=== PATIENT | male | born 2000 | race Caucasian/White ===

== ENCOUNTER 2023-06-24 13:29 | Emergency (ER) | payer BC ==
[~2023-06-24] VITALS: Ht 175 cm; Wt 75.0 kg
[2023-06-24 13:55] LABS: BASOPHILS % (AUTO) 1 % (0-10); EOSINOPHILS % (AUTO) 0 % (0-10); HEMATOCRIT 45 % (40-54); HEMOGLOBIN 16.3 g/dL (13.3-17.7); LYMPHOCYTES % (AUTO) 30 % (12-44); MEAN CORPUSCULAR HEMOGLOBIN 31 pg (25-34); MEAN CORPUSCULAR HGB CONC 36 g/dL (32-36); MEAN CORPUSCULAR VOLUME 86 fL (80-99); MEAN PLATELET VOLUME 9.8 fL (9.0-12.2); MONOCYTES # (AUTO) 0.3 10^3/uL (0.0-1.0); MONOCYTES % (AUTO) 4 % (0-12); NEUTROPHILS # (AUTO) 4.4 10^3/uL (1.8-7.8); NEUTROPHILS % (AUTO) 66 % (42-75); PLATELET COUNT 256 10^3/uL (130-400); WHITE BLOOD COUNT 6.8 10^3/uL (4.3-11.0)
[2023-06-24 14:06] LABS: CHLORIDE 104 MMOL/L (98-107); POTASSIUM 3.5 MMOL/L (3.6-5.0); SODIUM 141 MMOL/L (135-145)
[2023-06-24 14:08] LABS: CALCIUM 10.1 MG/DL (8.5-10.1)
[2023-06-24 14:09] LABS: GLUCOSE 107 MG/DL (70-105)
[2023-06-24 14:10] LABS: CARBON DIOXIDE 23 MMOL/L (21-32); TOTAL PROTEIN 8.2 GM/DL (6.4-8.2)
[2023-06-24 14:13] LABS: ALKALINE PHOSPHATASE 57 U/L (40-136); CREATININE SERUM 0.93 MG/DL (0.60-1.30); GFR ESTIMATED 121
[2023-06-24 14:15] LABS: BUN/CREATININE RATIO 13
[2023-06-24 14:16] LABS: ALANINE AMINOTRANSFERASE 54 U/L (0-55); SALICYLATE < 5.0 MG/DL (5.0-20.0)
--- NOTE | 2023-06-24 14:16 | Diagnostic Imaging Report ---
PROCEDURE: CT head and CT cervical spine without contrast. TECHNIQUE: Multiple contiguous axial images were obtained through the brain and cervical spine without the use of intravenous contrast. Sagittal and coronal reformations through the cervical spine were then performed. Auto Exposure Controls were utilized during the CT exam to meet ALARA standards for radiation dose reduction. INDICATION: Headache and neck pain after fall altered mental status. Intoxication. COMPARISON: None. FINDINGS: No acute intracranial hemorrhage. The roper-white matter differentiation is preserved. No intracranial mass or fluid collection. No midline shift or mass effect. Paranasal sinuses and mastoids are clear. The globes and orbits are normal. Normal alignment of the cervical spine. No acute fracture or dislocation. Normal disc spaces. No high-grade spinal canal or neuroforaminal stenosis. The soft tissues are normal. The visualized lung apices are normal. IMPRESSION: No acute intracranial hemorrhage. No large vascular territory sexton-white loss. No intracranial mass, midline shift, or hydrocephalus. No acute fracture or dislocation of the cervical spine. Dictated by: Dictated on workstation # [id number]
[2023-06-24 14:22] LABS: ACETAMINOPHEN < 10 UG/ML (10-30)
--- NOTE | 2023-06-24 14:23 | ED General ---
General Chief Complaint: Trauma EMS/Air Arrival Activat Stated Complaint: FALL | FEVER | DRUNK Nursing Triage Note: PT TO RM 5 BY [facility] FROM [facility] WITH C/O FALLING DOWN APPROX 10. TRAUMA 2 ACTIVATED. PT STATES HE DRANK A 12 PACK OF BEER STARTING AT 0645 THIS MORNING. PT DENIES PAIN AT ARRIVAL Source of Information: Patient, EMS Exam Limitations: Intoxication History of Present Illness Date Seen by Provider: Jun 24, 2023 Time Seen by Provider: 13:41 Initial Comments This 22-year-old young man presents to the emergency room via EMS after reportedly falling down approximately 10 steps at the [facility]. He is alert, talkative, and jovial but appears rather intoxicated. Is disoriented and does not answer all questions of orientation correctly. He denies any significant pain anywhere. There are no obvious injuries. It is unclear to me from the history if the fall was actually witnessed. C-collar was applied in the field. Patient is requiring frequent redirection to rodri still on the bed. Allergies and Home Medications Allergies Coded Allergies: No Known Drug Allergies (Unverified , 06/24/23) Patient Home Medication List Home Medication List Reviewed: Yes Review of Systems Review of Systems Constitutional: see HPI EENTM: no symptoms reported Respiratory: no symptoms reported Cardiovascular: no symptoms reported Gastrointestinal: no symptoms reported Genitourinary: no symptoms reported Musculoskeletal: no symptoms reported Skin: no symptoms reported Psychiatric/Neurological: See HPI Hematologic/Lymphatic: No Symptoms Reported Immunological/Allergic: no symptoms reported Past Lreicbx-Vqoqry-Rzsxwg Hx Patient Social History Tobacco Use?: No Substance use?: No Alcohol Use?: Yes Alcohol type: Beer Pt feels they are or have been: No Past Medical History Surgery/Hospitalization HX: BILAT KNEE Physical Exam Vital Signs Vital Signs - First Documented Capillary Refill : Less Than 3 Seconds Height, Weight, BMI Height: '" Weight: lbs. oz. 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 II-XII Norm as Tested, Other (Ill mood, intoxicated, disoriented) Skin: Normal Color, Warm/Dry Progress/Results/Core Measures Suspected Sepsis Recent Fever Within 48 Hours: Yes Infection Criteria Present: Suspected New Infection New/Unexplained Altered Menta: Yes SIRS Temperature: Pulse: 124 Respiratory Rate: 20 Laboratory Tests 06/24/23 13:47: White Blood Count 6.8 Blood Pressure 148 /84 Mean: 105 Laboratory Tests 06/24/23 13:47: Creatinine 0.93, Platelet Count 256, Total Bilirubin 1.0 Results/Orders Lab Results Laboratory Tests Test 06/24/23 13:34 06/24/23 13:47 06/24/23 14:45 Range/Units Influenza Type A (RT-PCR) Not Detected Not Detecte Influenza Type B (RT-PCR) Not Detected Not Detecte SARS-CoV-2 RNA (RT-PCR) Not Detected Not Detecte White Blood Count 6.8 4.3-11.0 10^3/uL Red Blood Count 5.20 4.30-5.52 10^6/uL Hemoglobin 16.3 13.3-17.7 g/dL Hematocrit 45 40-54 % Mean Corpuscular Volume 86 80-99 fL Mean Corpuscular Hemoglobin 31 25-34 pg Mean Corpuscular Hemoglobin Concent 36 32-36 g/dL Red Cell Distribution Width 11.9 10.0-14.5 % Platelet Count 256 130-400 10^3/uL Mean Platelet Volume 9.8 9.0-12.2 fL Immature Granulocyte % (Auto) 1 % Neutrophils (%) (Auto) 66 42-75 % Lymphocytes (%) (Auto) 30 12-44 % Monocytes (%) (Auto) 4 0-12 % Eosinophils (%) (Auto) 0 0-10 % Basophils (%) (Auto) 1 0-10 % Neutrophils # (Auto) 4.4 1.8-7.8 10^3/uL Lymphocytes # (Auto) 2.0 1.0-4.0 10^3/uL Monocytes # (Auto) 0.3 0.0-1.0 10^3/uL Eosinophils # (Auto) 0.0 0.0-0.3 10^3/uL Basophils # (Auto) 0.0 0.0-0.1 10^3/uL Immature Granulocyte # (Auto) 0.0 0.0-0.1 10^3/uL Sodium Level 141 135-145 MMOL/L Potassium Level 3.5 L 3.6-5.0 MMOL/L Chloride Level 104 98-107 MMOL/L Carbon Dioxide Level 23 21-32 MMOL/L Anion Gap 14 5-14 MMOL/L Blood Urea Nitrogen 12 7-18 MG/DL Creatinine 0.93 0.60-1.30 MG/DL Estimat Glomerular Filtration Rate 121 BUN/Creatinine Ratio 13 Glucose Level 107 H 70-105 MG/DL Calcium Level 10.1 8.5-10.1 MG/DL Corrected Calcium 8.5-10.1 MG/DL Total Bilirubin 1.0 0.1-1.0 MG/DL Aspartate Amino Transf (AST/SGOT) 47 H 5-34 U/L Alanine Aminotransferase (ALT/SGPT) 54 0-55 U/L Alkaline Phosphatase 57 40-136 U/L C-Reactive Protein High Sensitivity 0.04 0.00-0.50 MG/DL Total Protein 8.2 6.4-8.2 GM/DL Albumin 5.0 H 3.2-4.5 GM/DL Salicylates Level < 5.0 L 5.0-20.0 MG/DL Acetaminophen Level < 10 L 10-30 UG/ML Serum Alcohol 383 *H <10 MG/DL Urine Color YELLOW Urine Clarity CLEAR Urine pH 6.5 5-9 Urine Specific [place] <=1.005 1.016-1.022 Urine Protein 2+ H NEGATIVE Urine Glucose (UA) NEGATIVE NEGATIVE Urine Ketones NEGATIVE NEGATIVE Urine Nitrite NEGATIVE NEGATIVE Urine Bilirubin NEGATIVE NEGATIVE Urine Urobilinogen 0.2 < = 1.0 MG/DL Urine Leukocyte Esterase NEGATIVE NEGATIVE Urine RBC (Auto) TRACE H NEGATIVE Urine RBC NONE /HPF Urine WBC NONE /HPF Urine Squamous Epithelial Cells NONE /HPF Urine Crystals NONE /LPF Urine Bacteria NEGATIVE /HPF Urine Casts NONE /LPF Urine Mucus NEGATIVE /LPF Urine Culture Indicated NO Urine Opiates Screen NEGATIVE NEGATIVE Urine Oxycodone Screen NEGATIVE NEGATIVE Urine Methadone Screen NEGATIVE NEGATIVE Urine Propoxyphene Screen NEGATIVE NEGATIVE Urine Barbiturates Screen NEGATIVE NEGATIVE Ur Tricyclic Antidepressants Screen NEGATIVE NEGATIVE Urine Phencyclidine Screen NEGATIVE NEGATIVE Urine Amphetamines Screen NEGATIVE NEGATIVE Urine Methamphetamines Screen NEGATIVE NEGATIVE Urine Benzodiazepines Screen NEGATIVE NEGATIVE Urine Cocaine Screen NEGATIVE NEGATIVE Urine Cannabinoids Screen NEGATIVE NEGATIVE My Orders Orders - RENZO RIOS MD Acetaminophen (06/24/23 13:45) Alcohol (06/24/23 13:45) Cbc And Automated Diff (06/24/23 13:45) Comprehensive Metabolic Panel (06/24/23 13:45) Drug Screen Stat (Urine) (06/24/23 13:45) Salicylate (06/24/23 13:45) Ua Culture If Indicated (06/24/23 13:45) Ct Head/Cervical Spine Wo (06/24/23 13:45) Chest 1 View, Ap/Pa Only (06/24/23 13:45) Covid 19 Inhouse Test (06/24/23 13:45) Influenza A And B By Pcr (06/24/23 13:45) Hs C Reactive Protein (06/24/23 13:45) Lactated Ringers 1,000 Ml (Lactated Ring (06/24/23 14:45) Medications Given in ED Vital Signs/I&O 06/24/23 06/24/23 06/24/23 13:29 13:29 17:00 Temp 37.7 37.0 Pulse 124 124 82 Resp 20 20 16 B/P (MAP) 148/84 (105) 148/84 (105) 124/84 Pulse Ox 95 95 99 O2 Delivery Room Air Room Air Room Air Capillary Refill : Less Than 3 Seconds Blood Pressure Mean: 105 Progress Note : Progress Note Type II trauma activation was paged due to mechanism of injury and altered mental status. Patient remained in c-collar and had CT scan of the head and C- spine obtained as it could not be determined if altered mental status was purely due to intoxication or also from head injury. CT imaging was unremarkable with no evidence of acute injuries. Neurologist report was reviewed as below. Fever had been reported by EMS but was not duplicated in the ER. Flu and COVID testing was negative. Labs were obtained, reviewed, and interpreted by me. CBC, CMP, urinalysis, and toxicology screen were all unremarkable except for alcohol level of 383. He was hydrated with a liter of LR. He eventually did sober and was discharged into the care of his dad. Diagnostic Imaging Diagonstic Imaging: CT Plain Films/CT/US/NM/MRI: c-spine, head Comments NAME: EMRE DIAZ [facility] REC#: [id number] PT STATUS: REG ER : 2000 PHYSICIAN: RENZO RIOS MD ADMIT DATE: 06/24/23/ER Signed Date of Exam:06/24/23 CT HEAD/CERVICAL SPINE WO PROCEDURE: CT head and CT cervical spine without contrast. TECHNIQUE: Multiple contiguous axial images were obtained through the brain and cervical spine without the use of intravenous contrast. Sagittal and coronal reformations through the cervical spine were then performed. Auto Exposure Controls were utilized during the CT exam to meet ALARA standards for radiation dose reduction. INDICATION: Headache and neck pain after fall altered mental status. Intoxication. COMPARISON: None. FINDINGS: No acute intracranial hemorrhage. The roper-white matter differentiation is preserved. No intracranial mass or fluid collection. No midline shift or mass effect. Paranasal sinuses and mastoids are clear. The globes and orbits are normal. Normal alignment of the cervical spine. No acute fracture or dislocation. Normal disc spaces. No high-grade spinal canal or neuroforaminal stenosis. The soft tissues are normal. The visualized lung apices are normal. IMPRESSION: No acute intracranial hemorrhage. No large vascular territory sexton-white loss. No intracranial mass, midline shift, or hydrocephalus. No acute fracture or dislocation of the cervical spine. Dictated by: Dictated on workstation # [id number] Dict: 06/24/23 1411 Trans: 06/24/23 1414 [facility] [id number] Interpreted by: EDILSON BRUNER DO Electronically signed by: EDILSON BRUNER DO 06/24/23 1414 Diagonstic Imaging: Xray Plain Films/CT/US/NM/MRI: chest Comments NAME: EMRE DIAZ [facility] REC#: [id number] PT STATUS: DEP ER : 2000 PHYSICIAN: RENZO RIOS MD ADMIT DATE: 06/24/23/ER Signed Date of Exam:06/24/23 CHEST 1 VIEW, AP/PA ONLY INDICATION: Fall, trauma, fever. COMPARISON: None. FINDINGS: Single frontal view of the chest demonstrates normal heart size and pulmonary vascularity. The lungs are well aerated and clear. No large pleural effusion or pneumothorax is seen. The visualized osseous structures show no acute abnormalities. IMPRESSION: 1. No acute cardiopulmonary process. Dictated by: Dictated on workstation # [id number] Dict: 06/24/23 1419 Trans: 06/25/23904 [id number] Interpreted by: TESSA MG MD Electronically signed by: TESSA MG MD 06/25/23904 Departure Impression Primary Impression: Fall down stairs Qualified Codes: W10.8XXA - Fall (on) (from) other stairs and steps, initial encounter Additional Impression: Alcohol intoxication Qualified Codes: F10.920 - Alcohol use, unspecified with intoxication, uncomplicated Disposition: 01 HOME, SELF-CARE Condition: Improved Departure-Patient Inst. Decision time for Depature: 16:51 Referrals: NO,LOCAL PHYSICIAN (PCP/Family) Primary Care Physician Patient Instructions: ALCOHOL AND SUBSTANCE ABUSE Add. Discharge Instructions: Drink plenty of clear liquids to stay well-hydrated. Return to the ER if you develop possible concerning symptoms of head injury such as vomiting, confusion, escalating pain, vision changes, etc. Return to the ER if you have any other worsening symptoms. Avoid drinking alcohol to excess or with frequency. All discharge instructions reviewed with patient and/or family. Voiced understanding. RENZO RIOS MD Jun 24, 2023 14:23
[2023-06-24] MEDS ORDERED: LACTATED RINGERS 1,000 ML 1,000 ML IV ONE (14:45)
[2023-06-24 14:59] LABS: BILIRUBIN,URINE NEGATIVE (NEGATIVE); CLARITY,URINE CLEAR; COLOR,URINE YELLOW; GLUCOSE, URINE (UA) NEGATIVE (NEGATIVE); KETONES,URINE NEGATIVE (NEGATIVE); NITRITE,URINE NEGATIVE (NEGATIVE); PH,URINE 6.5 (5-9); PROTEIN,URINE 2+ (NEGATIVE)
[2023-06-24 15:00] LABS: BACTERIA,URINE NEGATIVE /HPF; LEUKOCYTE ESTERASE ,URINE NEGATIVE (NEGATIVE)
[2023-06-24 15:08] LABS: AMPHETAMINE SCREEN, URINE NEGATIVE (NEGATIVE); BARBITURATE SCREEN URINE NEGATIVE (NEGATIVE); CANNABINOID SCREEN, URINE NEGATIVE (NEGATIVE); COCAINE SCREEN URINE NEGATIVE (NEGATIVE); METHADONE STAT NEGATIVE (NEGATIVE); OPIATE SCREEN URINE NEGATIVE (NEGATIVE); OXYCODONE STAT NEGATIVE (NEGATIVE); PROPOXYPHENE STAT NEGATIVE (NEGATIVE); TRICYCLIC ANTIDEPRESSANTS SCRE NEGATIVE (NEGATIVE)
[2023-06-24 17:00] VITALS: BP 124/84
== END 2023-06-24 17:00 | disposition home or self-care (01) ==
LOC: ER 13:41
DX: F10.129 Alcohol abuse with intoxication, unspecified (principal); Z20.822 Contact with and (suspected) exposure to COVID-19; W10.8XXA Fall (on) (from) other stairs and steps, initial encounter
CPT/HCPCS: 36415; 70450; 71045; 72125; 80053; 80306; 80320; 80329; 81000; 85025; 86141; 87636